=== PATIENT | female | born 2000 | race Caucasian/White ===

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

== ENCOUNTER 2018-02-05 12:48 | Emergency (ER) | payer MEDICAID ==
[~2018-02-05] VITALS: Ht 172.7 cm; Wt 55.0 kg
[2018-02-05 13:20] LABS: BASOPHILS # (AUTO) 0.02 x10^3/uL (0-0.3); BASOPHILS % (AUTO) 0 % (0-1); EOSINOPHILS # (AUTO) 0.07 x10^3/uL (0-0.8); EOSINOPHILS % (AUTO) 1 % (1-7); LYMPHOCYTES # (AUTO) 1.11 x10^3/uL (1-6.1); LYMPHOCYTES % (AUTO) 21 % (22-44); MD NO; MEAN CORPUSCULAR HEMOGLOBIN 32.7 pg (27.0-34.8); MEAN CORPUSCULAR HGB CONC 34.4 g/dL (32.4-35.8); MEAN CORPUSCULAR VOLUME 95.3 fL (80-100); MEAN PLATELET VOLUME 8.6 fL (7.4-10.4); MONOCYTES # (AUTO) 0.35 x10^3/uL (0-1.4); MONOCYTES % (AUTO) 7 % (2-9); NEUTROPHILS # (AUTO) 3.63 x10^3/uL (1.8-8.0); NEUTROPHILS % (AUTO) 70 % (42-75); PLATELET COUNT 232 x10^3/uL (130-400); RED BLOOD COUNT 4.61 x10^6/uL (3.82-5.3); RED CELL DISTRIBUTION WIDTH 12.9 % (9.6-15.2)
[2018-02-05 13:31] LABS: ALBUMIN 4.3 g/dL (3.4-5.0); ANION GAP 8 mmol/L (5-15); CALCIUM 9.2 mg/dL (8.5-10.1); CHLORIDE 108 mmol/L (98-107)
[2018-02-05 13:48] LABS: ALANINE AMINOTRANSFERASE 12 U/L (12-78); ALKALINE PHOSPHATASE 63 U/L (45-117); BILIRUBIN,TOTAL 0.5 mg/dL (0.2-1.0); CREATININE 0.72 mg/dL (0.55-1.02); TOTAL PROTEIN 7.5 g/dL (6.4-8.2); TROPONIN I < 0.015 ng/mL (0.000-0.045)
[2018-02-05 16:17] LABS: CULTURE INDICATED? YES; MICROSCOPIC INDICATED
[2018-02-05 17:11] VITALS: BP 105/54
== END 2018-02-05 17:13 | disposition home or self-care (01) ==
LOC: ED 16:37
DX: R07.89 Other chest pain (principal); R00.2 Palpitations; N30.90 Cystitis, unspecified without hematuria; I49.9 Cardiac arrhythmia, unspecified; J45.909 Unspecified asthma, uncomplicated
CPT/HCPCS: 36415; 71046; 80053; 81001; 84436; 84443; 84484; 84703; 85025; 87077; 87086; 87186; 93005; 99285

== ENCOUNTER 2018-03-15 12:17 | Emergency (ER) | payer MEDICAID ==
[~2018-03-15] VITALS: Ht 172.7 cm; Wt 55.2 kg
[2018-03-15 12:37] VITALS: BP 130/72
[2018-03-15] MEDS ORDERED: PHENAZOPYRIDINE 200 MG TABLET ONE (12:57)
[2018-03-15] MEDS ORDERED: ONDANSETRON ODT 4 MG ONE (12:58)
[2018-03-15] MEDS ORDERED: ONDANSETRON ODT 4 MG PO ONE (13:00)
[2018-03-15] MEDS ORDERED: PHENAZOPYRIDINE 200 MG TABLET PO ONE (13:00)
[2018-03-15 13:06] LABS: HCG UR SG 1.029 (1.003-1.030); MICROSCOPIC INDICATED
[2018-03-15 13:07] LABS: CULTURE INDICATED? YES
== END 2018-03-15 13:55 | disposition home or self-care (01) ==
LOC: ED 13:39
DX: N30.00 Acute cystitis without hematuria (principal); J45.909 Unspecified asthma, uncomplicated
CPT/HCPCS: 81001; 81025; 87077; 87086; 99284; Q0162; 87186

== ENCOUNTER 2018-04-14 16:26 | Emergency (ER) | payer MEDICAID ==
[~2018-04-14] VITALS: Ht 172.7 cm; Wt 52.0 kg
[~2018-04-14 16:26] MED LIST changes: +TRAZ-137 PO; -TRAZ100T15 PO
[2018-04-14 16:39] VITALS: BP 106/39
[2018-04-14 17:04] LABS: CULTURE INDICATED? YES; MICROSCOPIC INDICATED
== END 2018-04-14 17:46 | disposition home or self-care (01) ==
LOC: ED 17:40
DX: N30.00 Acute cystitis without hematuria (principal); J45.909 Unspecified asthma, uncomplicated
CPT/HCPCS: 81001; 87086; 99284

== ENCOUNTER 2018-04-24 12:00 | Emergency (ER) | payer MEDICAID ==
[~2018-04-24] VITALS: Ht 172.7 cm; Wt 53.9 kg
[2018-04-24 12:09] VITALS: BP 98/60
[2018-04-24] MEDS ORDERED: DEXAMETHASONE 4 MG TABLET PO ONE (12:30)
[2018-04-24] MEDS ORDERED: DEXAMETHASONE 4 MG TABLET ONE (12:32)
== END 2018-04-24 13:00 | disposition home or self-care (01) ==
LOC: ED 12:54
DX: J02.8 Acute pharyngitis due to other specified organisms (principal); B97.89 Other viral agents as the cause of diseases classified elsewhere; F17.200 Nicotine dependence, unspecified, uncomplicated; Z88.1 Allergy status to other antibiotic agents
CPT/HCPCS: 87081; 87880; 99284

== ENCOUNTER 2018-07-22 12:11 | Emergency (ER) | payer SELFPAY ==
[~2018-07-22] VITALS: Ht 172.7 cm; Wt 51.8 kg
[2018-07-22 12:34] VITALS: BP 106/55
[2018-07-22 13:14] LABS: HCG UR SG 1.027 (1.003-1.030); MICROSCOPIC INDICATED
[2018-07-22 13:15] LABS: CULTURE INDICATED? YES
== END 2018-07-22 15:18 ==
LOC: ED 15:12
DX: N30.00 Acute cystitis without hematuria (principal); J45.909 Unspecified asthma, uncomplicated; Z88.3 Allergy status to other anti-infective agents
CPT/HCPCS: 81001; 81025; 87086; 99283

== ENCOUNTER 2018-12-25 17:46 | Emergency (ER) | payer SELFPAY ==
[~2018-12-25] VITALS: Ht 172.7 cm; Wt 50.2 kg
--- NOTE | 2018-12-25 18:50 | NUR ---
PT PRESENTS TO ED WITH C/O SINUS PRESSURE AND COUGH FOR LAST SEVERAL DAYS. PT NOTES "MY KIDNEYS HURT AND I HAD CHEST PAIN FOR A FEW DAYS BUT THAT STOPPED YESTERDAY." PT DENIES CP AT THIS TIME, DENIES DYSURIA. YADIRA PEREZ NOTIFIED, ORDER RECEIVED FOR EKG. PT PLACED ON ALL MONITORS. PT A&O, RESPS EVEN AND UNLABORED, SPEAKING IN FULL SENTENCES WITHOUT DIFFICULTY. NSR ON BICYCLE RACER. REPORT GIVEN TO BREAK ASHLEIGH STAPLETON. MOTHER AT BEDSIDE.
--- NOTE | 2018-12-25 19:41 | NUR ---
EKG COMPLETED BY THIS RN, REVIEWED BY KELBY MOMIN AND YADIRA PEREZ. PT RESTING ON GURNEY, RESPS EVEN AND UNLABORED. NSR ON GARMENT EXAMINER WITH NO ECTOPY. EDPA AT BEDSIDE TO UPDATE PT WITH RESULTS AND POC.
[2018-12-25 19:59] VITALS: BP 106/69
--- NOTE | 2018-12-25 20:00 | NUR ---
PT GIVEN DC INSTRUCTIONS AND SCRIPT. PT EDUCATED REGARDING DC RX FOR ALBUTEROL AND TESSALON RX. PT A&O, RESPS EVEN AND UNLABORED. PT AMB TO DC DESK WITH STEADY GAIT ACCOMPANIED BY GRANDMOTHER. IMTIAZ AT [place].
== END 2018-12-25 20:01 | disposition home or self-care (01) ==
LOC: ED 19:48
DX: B34.9 Viral infection, unspecified (principal); L72.3 Sebaceous cyst; J45.909 Unspecified asthma, uncomplicated
CPT/HCPCS: 71046; 93005; 99283

== ENCOUNTER 2019-07-24 09:26 | Emergency (ER) | payer SELFPAY ==
[~2019-07-24] VITALS: Ht 172.7 cm; Wt 50.0 kg
[2019-07-24 09:31] VITALS: BP 118/77
[2019-07-24 10:20] LABS: HCG UR SG 1.026 (1.003-1.030); MICROSCOPIC NOT IND
[2019-07-24 10:39] LABS: CULTURE INDICATED? NO
== END 2019-07-24 10:59 | disposition home or self-care (01) ==
LOC: ED 09:43
DX: R30.0 Dysuria (principal); J45.909 Unspecified asthma, uncomplicated
CPT/HCPCS: 81003; 81025; 99283

== ENCOUNTER 2019-08-02 17:05 | Emergency (ER) | payer OTHER ==
[~2019-08-02] VITALS: Ht 172.7 cm; Wt 46.8 kg
[2019-08-02 17:17] VITALS: BP 121/76
--- NOTE | 2019-08-02 17:53 | NUR ---
DECREASED APPETITE, VOMITING, LOST 7 POUNDS THIS WEEK AND HAS A COUGH
--- NOTE | 2019-08-02 18:10 | NUR ---
XRAY AT BEDSIDE
[2019-08-02 18:41] LABS: RAPID INFLUENZA A Negative (Negative); RAPID INFLUENZA B Negative (Negative)
--- NOTE | 2019-08-02 18:55 | NUR ---
RE-EVAL BY
[2019-08-02 20:04] LABS: MICROSCOPIC INDICATED
[2019-08-02 20:14] LABS: CULTURE INDICATED? YES
== END 2019-08-02 19:33 | disposition home or self-care (01) ==
LOC: ED 18:11
DX: R05 Cough (principal); R50.9 Fever, unspecified; R11.2 Nausea with vomiting, unspecified; R07.89 Other chest pain; M54.5 Low back pain; J45.909 Unspecified asthma, uncomplicated; F17.200 Nicotine dependence, unspecified, uncomplicated
CPT/HCPCS: 71045; 81001; 87086; 87400; 99284

== ENCOUNTER 2021-05-07 22:29 | Emergency (ER) | payer MEDICAID, OTHER ==
[~2021-05-07] VITALS: Ht 172.7 cm; Wt 56.7 kg
[~2021-05-07 22:29] MED LIST changes: -TRAZ-137 PO; +TRAZ-175 PO
[2021-05-07 22:35] VITALS: BP 111/66
[2021-05-08 01:25] LABS: ALBUMIN 4.2 g/dL (3.4-5.0); ANION GAP 5 mmol/L (5-15); CALCIUM 8.8 mg/dL (8.5-10.1); CHLORIDE 107 mmol/L (98-107); CREATININE 0.64 mg/dL (0.55-1.02)
[2021-05-08 01:27] LABS: BASOPHILS % (AUTO) 1 % (0-1); EOSINOPHILS % (AUTO) 1 % (1-7); LYMPHOCYTES % (AUTO) 20 % (22-44); MEAN CORPUSCULAR HEMOGLOBIN 32.7 pg (27.0-34.8); MEAN CORPUSCULAR HGB CONC 34.9 g/dL (32.4-35.8); MEAN PLATELET VOLUME 8.3 fL (7.4-10.4); MONOCYTES % (AUTO) 6 % (2-9); NEUTROPHILS % (AUTO) 73 % (42-75); PLATELET COUNT 234 x10^3/uL (130-400); RED BLOOD COUNT 4.45 x10^6/uL (3.82-5.3)
== END 2021-05-08 04:42 | disposition home or self-care (01) ==
LOC: ED 23:00
DX: B34.9 Viral infection, unspecified (principal); Z20.822 Contact with and (suspected) exposure to COVID-19; J45.909 Unspecified asthma, uncomplicated; F17.210 Nicotine dependence, cigarettes, uncomplicated
CPT/HCPCS: 36415; 71045; 80048; 82040; 85025; 93005; 99285; 99406; U0003; U0005